=== PATIENT | female | born 1960 | race Caucasian/White ===

== ENCOUNTER 2016-05-28 11:15 | Day surgery (SDC) | payer OTHER ==
[~2016-05-28] VITALS: Ht 170.2 cm; Wt 77.1 kg
[~2016-05-28 11:15] MED LIST: CITA40TA13 PO; FEXO180T85 PO; Sodium Chloride LOK Flush 10 mL Syringe IV PRN; fentaNYL-PF 50 mCg/mL 2 mL Inj IVPUSH PRN
[2016-05-28 12:30] VITALS: BP 140/81; PULSE 46; RESP 16; O2SAT 98
[2016-05-28] MEDS: 0.9% Sodium Chloride 1,000 ML IV PRN ×2 (13:20→13:37)
[2016-05-28 13:46] VITALS: BP 122/66; PULSE 47; RESP 16; O2SAT 95
[2016-05-28 13:56] VITALS: BP 121/67; PULSE 49; RESP 16; O2SAT 97
[2016-05-28 14:05] VITALS: BP 133/75; PULSE 47; RESP 16; O2SAT 97
--- NOTE | 2016-05-28 20:21 | ENDO ---
[address] [address] ENDOSCOPY PROCEDURE PATIENT: BRIANA FREDERICK : 1960 MR#: [id number] ADMIT: 05/28/2016 JOB ID: [id number] PRIMARY PROVIDER: VIANCA Almeida PROCEDURE: A limited flexible sigmoidoscopy. 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 She returns for early flexible sigmoidoscopy to ensure there is no residual polyp remaining. EQUIPMENT: [id number]-H180AL. SEDATION: 3 mg Versed and 75 mcg fentanyl. COMPLICATIONS: None identified. Bowel prep adequate distally (with two Fleet enemas). PROCEDURE INFORMATION: After the risks and benefits were explained, written and verbal informed consent was obtained, the patient was brought into the endoscopy suite and placed into the left lateral decubitus position. Sedation was achieved as above. A digital rectal examination accomplished. No pathology appreciated. The scope was introduced into the rectum and advanced to about 25 cm from the anal verge up into the mid sigmoid. I did not pursue any further or deeper interrogation as the patient had a fairly sharp corner at this location and I wanted to concentrate on the mucosa in the rectum. The scope was slowly withdrawn. Multiple different photographs were taken from the previous polypectomy site. I could see the previously placed tattoo. We compared the images today with photographs from the last exam. I brought out some forceps in order to in essence take a biopsy from the mucosa adjacent to the polypectomy site to confirm the lack of adenomatous mucosa but we could not really get the forceps to position appropriately to get a bite of this mucosa. Visually, it did not appear as though there was any remaining adenomatous mucosa. I could see an appropriate scarring stellate effect with some superficial vascularity over this area but certainly no irregular mucosa concerning for residual adenoma. We took photos from multiple angles as above. Ultimately, the colon was then decompressed, the scope removed from the patient who tolerated the procedure well. FINDINGS: See above. No residual polyp could be identified. The old polypectomy scar could easily be seen as was the tattoo focus. ENDOSCOPIC DIAGNOSES: No residual rectal polyp. RECOMMENDATIONS: Proceed with repeat colonoscopy in 2-1/2 years.
== END 2016-05-28 23:59 | disposition home or self-care (01) ==
LOC: END 11:15
PROVIDERS: ATTEND Internal Medicine Gastroenterology
DX: K62.1 Rectal polyp (principal); F41.8 Other specified anxiety disorders; B00.9 Herpesviral infection, unspecified; J30.9 Allergic rhinitis, unspecified
CPT/HCPCS: 45330; G0500; J7030